=== PATIENT | male | born 1975 | race Asian ===

== ENCOUNTER 2018-10-31 20:54 | Observation (INO) | payer BC ==
--- NOTE | 2018-10-31 21:16 | PDOC ---
History of Present Illness - General Stated Complaint: SYNCOPY Time Seen by Provider: 10/31/18 20:57 History Source: Patient Exam Limitations: No Limitations - History of Present Illness Initial Comments: 10/31/18 21:16 43 yo M with significant PMHx of HTN and AVM's presents after experiencing seizure like activity while at home. He is accompanied by his you witnessed the episode. She states they were sitting down for dinner when she noticed him staring off. When she called his name he did not respond. He then began to shake his right arm and mumble strange sounds. The entire event last approx. 1 min. Then he became responsive again with no recollection of the events. No confusion he knew where he was and could identify his family but no memory events. He did not have any palpitations or loss of consciousness. He was simply sitting in a chair when this occurred. He did have seizure like activity several years ago when he was taking Buproprion to quit smoking but that is the last occurance .He denies CP, DAWSON, SOB, abdominal pain , nausea or vomiting. 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 - Suicide/Smoking/Psychosocial Hx Smoking Status: No Smoking History: Former smoker Have you smoked in the past 12 months: No If you are a former smoker, when did you quit?: 10 yrs gemma Hx Alcohol Use: No Drug/Substance Use Hx: No Lives with/in: spouse/SO Review of Systems - Review of Systems Able to Perform ROS?: Yes Is the patient limited Pashto proficient: No Constitutional: No: Diaphoresis, Fever, Loss of Appetite HEENTM: No: Recent change in vision Respiratory: No: Cough, Orthopnea, Shortness of Breath Cardiac (ROS): No: Chest Pain, Edema, Irregular Heart Rate ABD/GI: No: Abdominal Distended, Diarrhea, Poor Appetite, Poor Fluid Intake Psychiatric: No: Anxiety, Depression Endocrine: No: Flushing *Physical Exam - Physical Exam General Appearance: Yes: Appropriately Dressed. No: Apparent Distress HEENT: positive: LUIS A, Normal ENT Inspection, Normal Voice Neck: positive: Trachea midline, Supple Respiratory/Chest: positive: Chest Tender, Lungs Clear, Normal Breath Sounds. negative: Respiratory Distress, Accessory Muscle Use Cardiovascular: positive: Regular Rhythm, Regular Rate, S1, S2. negative: Edema , JVD, Murmur Vascular Pulses: Dorsalis-Pedis (R): 2+, Doralis-Pedis (L): 2+ Gastrointestinal/Abdominal: positive: Normal Bowel Sounds, Flat, Soft. negative : Organomegaly, Pulsatile Mass Musculoskeletal: negative: CVA Tenderness Extremity: positive: Normal Capillary Refill, Normal Inspection, Normal Range of Motion Neurologic: positive: blood tester II-XII NML intact, Fully Oriented, Alert, Normal Mood/ Affect, Normal Response, Motor Strength 10/25 ED Treatment Course - LABORATORY CBC & Chemistry Diagram: 10/31/18 21:43 10/31/18 21:43 Medical Decision Making - Medical Decision Making 10/31/18 22:18 43 yo M with significant PMHx of HTN and AVM's presents after experiencing seizure like activity while at home. Will obtain an EKG, CBC, and CMP to r/o cardiac or metabolic causes. Will consult Dr. Pollard for neurology and send for CTA. 10/31/18 22:35 * Labs are WNL, patient sent to CTA. * Spoke with Dr. Linn and discussed the case. He will see the patient tomorrow. Hold on AEM. If has another episode can load him at that time. * Awaiting CTA results. * Will contact Hospitalist to place patient on Observation. 10/31/18 23:51 * CTA was negative for bleed or tumor. * Patient has been accepted by Dr. Dia for observation to telemetry. *DC/Admit/Observation/Transfer Diagnosis at time of Disposition: Single unprovoked seizure - Discharge Dispostion Decision to Admit order: Yes - Referrals - Patient Instructions - Post Discharge Activity
[2018-10-31 21:48] LABS: BASO % 0.5 % (0-2.0); EOS % 0.9 % (0-4.5); HEMATOCRIT 42.9 % (35.4-49); HEMOGLOBIN 14.5 GM/dL (11.7-16.9); LYMPH % 19.4 % (8-40); MCHC 33.9 g/dl (32.0-35.9); MEAN CELL VOLUME 91.5 fl (80-96); MEAN PLT VOLUME 7.8 fl (7.5-11.1); MONO % 6.5 % (3.8-10.2); NEUT % 72.7 % (42.8-82.8); PLATELET COUNT 240 K/MM3 (134-434); RBC 4.69 M/mm3 (4.00-5.60); RDW 12.9 % (11.9-15.9); WHITE BLOOD COUNT 7.5 K/mm3 (4.0-10.0)
--- NOTE | 2018-10-31 21:49 | PDOC ---
Documentation entered by Ivet Sotelo SCRIBE, acting as scribe for Rukhsana Rojas MD. Rukhsana Rojas MD: This documentation has been prepared by the Ashleigh ross Xhesika, SCRIBE, under my direction and personally reviewed by me in its entirety. I confirm that the documentation accurately reflects all work, treatment, procedures, and medical decision making performed by me. Attending Attestation - Resident Resident Name: Sebastien Stearns - ED Attending Attestation I have performed the following: I have examined & evaluated the patient, The case was reviewed & discussed with the resident, I agree w/resident's findings & plan, Exceptions are as noted - HPI HPI: 10/31/18 21:49 The patient is a 43 year old male with a significant past medical history of HTN and AVM's who presents to our ED, via EMS after a syncopal episode around 8pm. As per , the patient was at the dinner table having dinner, went blank , could not make eye contact, started shaking right hand and making mumbling noises. As per , this episode lasted for 1 minute before self resolving, however, the patient is a poor historian because he is unaware of what happened. As per , this was unusual behavior. The patient denies headache or heart palpitations prior to his episode. The patient denies chest pain, shortness of breath or dizziness. The patient denies fever, chills, nausea, diarrhea or constipation. The patient denies dysuria, frequency, urgency or hematuria. Allergy: NKDA Surgical History: None reported Social History: None reported PCP: Dr. Nam - Physicial Exam PE: 10/31/18 21:09 GENERAL: The patient is in no acute distress. ENT: Ears normal, nares patent, oropharynx clear without exudates. Moist mucous membranes. NECK: Normal range of motion, supple LUNGS: Breath sounds equal, clear to auscultation bilaterally. No wheezes, and no crackles. HEART:Regular rate and rhythm, normal S1 and S2 without murmur, rub or gallop. ABDOMEN: Soft, nontender, normoactive bowel sounds. EXTREMITIES: Normal range of motion, no edema. NEUROLOGICAL: Cranial nerves II through XII grossly intact. Normal speech. No focal neurological deficits. SKIN: Warm, Dry, normal turgor, no rashes or lesions noted. - Medical Decision Making 10/31/18 21:42 Mr Mcfarland is a 43 yo M who presents to the ER s/p reported syncopal episode Pt was in his usual state of health until this evening at dinner At approximately 8:15 his noted that he was grunting/making strange noises , no eye contact, staring off in to space, and shaking his right arm Episode lasted approximately 1 minute and resolved Pt was not noted to be sleepy He was confused as to why his family was calling EMS BUT he knew where he was and all the people in the room No headache No neck pain Pt has a prior history of a single Generalized Tonic Clonic Seizure approximately 17 years ago (in the setting of using Wellbutrin for smoking cessation) Pt currently is back to his baseline DD: Seizure, Vasovagal syncopy, Intracranial mass, SAH, Arrhythmia Will do: Labs EKG Contact NSGY (who did coiling of AVMs) Consult neurology 10/31/18 22:47 Laboratory Tests 10/31/18 10/31/18 21:43 21:43 WBC 7.5 Hgb 14.5 Hct 42.9 Plt Count 240 BUN 17 Creatinine 1.1 Call placed to Neurology Recommends placing on observation (given history of AVMs) Awaiting CT head *DC/Admit/Observation/Transfer Diagnosis at time of Disposition: Single unprovoked seizure - Discharge Dispostion Condition at time of disposition: Stable Decision to Admit order: Yes - Referrals - Patient Instructions - Post Discharge Activity
[2018-10-31 22:35] LABS: ALBUMIN 4.1 g/dl (3.4-5.0); BILIRUBIN,TOTAL 0.3 mg/dL (0.2-1); CREATININE 1.1 mg/dL (0.55-1.3); TOT PROT 6.8 g/dl (6.4-8.2)
[2018-10-31] MEDS ORDERED: SODIUM CHLORIDE 1,000 ML IV SCH (23:30)
--- NOTE | 2018-10-31 23:34 | HP ---
CHIEF COMPLAINT:seizure episode PCP: Cyril HISTORY OF PRESENT ILLNESS: 43yo man with remote sz episode 10 yrs ago, brought in with after seizure episode at [employer] at 8pm on 10/31. Was found in chair staring off into space with right arm twitching. Lasted 2 minutes. had only one beer at [employer]. Had neck AVM sclerosed x3 - last one 1.5 years ago. Reported having multiple brain MRIs done -negative for AVMs. ER course was notable for: (1) head CT (2) IV fluids (3) Recent Travel: no PAST MEDICAL HISTORY: remote seizure episode- 10 years ago - never on AEDs, attributed to Wellbutrin that he was on at that time. Neck AVMs s/p 3 procedures - sclerotherapy? last one 1.5 years ago PAST SURGICAL HISTORY: as above Social History: Smoking: former smoker Alcohol:social Drugs: no denied Family History: denied Allergies No Known Allergies Allergy (Verified 10/31/18 21:33) HOME MEDICATIONS: Home Medications Medication Instructions Recorded Hydrochlorothiazide [Hctz -] 12.5 mg PO DAILY 10/31/18 Losartan Potassium 50 mg PO DAILY 10/31/18 REVIEW OF SYSTEMS CONSTITUTIONAL: Absent: fever, chills, diaphoresis, generalized weakness, malaise, loss of appetite, weight change HEENT: Absent: rhinorrhea, nasal congestion, throat pain, throat swelling, difficulty swallowing, mouth swelling, ear pain, eye pain, visual changes CARDIOVASCULAR: Absent: chest pain, syncope, palpitations, irregular heart rate, lightheadedness , peripheral edema RESPIRATORY: Absent: cough, shortness of breath, dyspnea with exertion, orthopnea, wheezing, stridor, hemoptysis GASTROINTESTINAL: Absent: abdominal pain, abdominal distension, nausea, vomiting, diarrhea, constipation, melena, hematochezia GENITOURINARY: Absent: dysuria, frequency, urgency, hesitancy, hematuria, flank pain, genital pain MUSCULOSKELETAL: Absent: myalgia, arthralgia, joint swelling, back pain, neck pain SKIN: Absent: rash, itching, pallor HEMATOLOGIC/IMMUNOLOGIC: Absent: easy bleeding, easy bruising, lymphadenopathy, frequent infections ENDOCRINE: Absent: unexplained weight gain, unexplained weight loss, heat intolerance, cold intolerance NEUROLOGIC: Absent: headache, focal weakness or paresthesias, dizziness, unsteady gait, mental status changes, bladder or bowel incontinence present- seizure, PSYCHIATRIC: Absent: anxiety, depression, suicidal or homicidal ideation, hallucinations. PHYSICAL EXAMINATION Vital Signs - 24 hr 10/31/18 21:00 Temperature 97.6 F Pulse Rate 77 Respiratory 18 Rate Blood Pressure 126/86 O2 Sat by Pulse 100 Oximetry (%) GENERAL: Awake, alert, and fully oriented, in no acute distress. HEAD: Normal with no signs of trauma. EYES: Pupils equal, round and reactive to light, extraocular movements intact, sclera anicteric, conjunctiva clear. No lid lag. EARS, NOSE, THROAT: Ears normal, nares patent, oropharynx clear without exudates. Moist mucous membranes. NECK: Normal range of motion, supple without lymphadenopathy, JVD, or masses. LUNGS: Breath sounds equal, clear to auscultation bilaterally. No wheezes, and no crackles. No accessory muscle use. HEART: Regular rate and rhythm, normal S1 and S2 without murmur, rub or gallop. ABDOMEN: Soft, nontender, not distended, normoactive bowel sounds, no guarding, no rebound, no masses. MUSCULOSKELETAL: Normal range of motion at all joints. No bony deformities or tenderness. No CVA tenderness. UPPER EXTREMITIES: 2+ pulses, warm, well-perfused. No cyanosis. No clubbing. No peripheral edema. LOWER EXTREMITIES: 2+ pulses, warm, well-perfused. No calf tenderness. No peripheral edema. NEUROLOGICAL: Cranial nerves II-XII intact. Normal speech. No focal weaknesses PSYCHIATRIC: Cooperative. Good eye contact. Appropriate mood and affect. SKIN: Warm, dry, normal turgor, no rashes or lesions noted, normal capillary refill. Laboratory Results - last 24 hr 10/31/18 10/31/18 21:43 21:43 WBC 7.5 RBC 4.69 Hgb 14.5 Hct 42.9 MCV 91.5 MCH 31.0 MCHC 33.9 RDW 12.9 Plt Count 240 MPV 7.8 Absolute Neuts (auto) 5.4 Neutrophils % 72.7 Lymphocytes % 19.4 Monocytes % 6.5 Eosinophils % 0.9 Basophils % 0.5 Nucleated RBC % 0 Sodium 138 Potassium 4.0 Chloride 104 Carbon Dioxide 28 Anion Gap 7 L BUN 17 Creatinine 1.1 Est GFR (CKD-EPI)AfAm 94.79 Est GFR (CKD-EPI)NonAf 81.78 Random Glucose 110 H Calcium 8.0 L Total Bilirubin 0.3 AST 22 ALT 31 Alkaline Phosphatase 90 Total Protein 6.[address], ekg reviewed ASSESSMENT/PLAN: #Seizure episode - unprovoked, second episode. -tele-observation -npo -IV fluid hydration -bed rest -No AEDs for now as per neuro recs -neuro consult -neuro checks q4hr -bed rest -monitor electrolytes, replace prn -SCDs -for dvt ppx Visit type - Emergency Visit Emergency Visit: Yes ED Registration Date: 10/31/18 Care time: The patient presented to the Emergency Department on the above date and was hospitalized for further evaluation of their emergent condition. - New Patient This patient is new to me today: Yes Date on this admission: 11/01/18 - Critical Care Critical Care patient: No
[2018-11-01 03:36] VITALS: BMI 24.7
[2018-11-01 07:31] LABS: HEMATOCRIT 39.7 % (35.4-49); HEMOGLOBIN 13.5 GM/dL (11.7-16.9); MCH 30.9 pg (25.7-33.7); MCHC 33.9 g/dl (32.0-35.9); MEAN CELL VOLUME 91.2 fl (80-96); MEAN PLT VOLUME 8.3 fl (7.5-11.1); PLATELET COUNT 215 K/MM3 (134-434); RBC 4.36 M/mm3 (4.00-5.60); RDW 13.5 % (11.9-15.9); WHITE BLOOD COUNT 6.6 K/mm3 (4.0-10.0)
[2018-11-01 07:40] LABS: CALCIUM 8.1 mg/dL (8.5-10.1); CREATININE 0.9 mg/dL (0.55-1.3); MAGNESIUM 2.1 mg/dL (1.8-2.4); PHOSPHOROUS 2.6 mg/dL (2.5-4.9); POTASSIUM 3.7 mmol/L (3.5-5.1)
--- NOTE | 2018-11-01 09:35 | EKG ---
Test Reason : Blood Pressure : / mmHG Vent. Rate : 073 BPM Atrial Rate : 073 BPM P-R Int : 170 ms QRS Dur : 090 ms QT Int : 370 ms P-R-T Axes : 046 040 015 degrees QTc Int : 407 ms NORMAL SINUS RHYTHM NORMAL ECG NO PREVIOUS ECGS AVAILABLE Confirmed by MARIFER BARBA MD ([id number]) on 11/01/2018 9:35:13 AM Referred By: Confirmed By:MARIFER BARBA MD
[2018-11-01] MEDS ORDERED: LOSARTAN POTASSIUM 50 MG TABLET (FP) PO SCH (10:00)
[2018-11-01] MEDS ORDERED: HYDROCHLOROTHIAZIDE 12.5 MG CAPSULE (FP) PO SCH (10:00)
[2018-11-01 10:26] VITALS: BP 124/79; PULSE 62; TEMP 98.1
--- NOTE | 2018-11-01 10:39 | PN ---
Progress Note, Physician Chief Complaint: New onset of seizure History of Present Illness: NAD Self ambulatory Hx of AVM Sees Dr Reji Reyes MD (Diagnostic radiologist) Mabel means Has had 3 procedures int he past, Had last embolization late 2016 CT head negative Was having a beer at a get together, talking to his friend, started spacing out , sat down, stared for 30 secs with right arm twitching, then returned to his baseline as per his . - Current Medication List Current Medications: Active Medications Hydrochlorothiazide (Hctz -) 12.5 mg PO DAILY KIEL Losartan Potassium (Cozaar -) 50 mg PO DAILY KEIL - Objective Vital Signs: Vital Signs Temperature 98.1 F 11/01/18 09:00 Pulse Rate 62 11/01/18 09:00 Respiratory Rate 20 11/01/18 09:00 Blood Pressure 124/79 11/01/18 09:00 O2 Sat by Pulse Oximetry (%) 98 11/01/18 07:30 Constitutional: Yes: Well Nourished, No Distress, Calm Cardiovascular: Yes: Regular Rate and Rhythm Respiratory: Yes: Regular, CTA Bilaterally Gastrointestinal: Yes: Normal Bowel Sounds, Soft Genitourinary: Yes: WNL Musculoskeletal: Yes: WNL Extremities: Yes: WNL Neurological: Yes: Alert, Oriented ...Motor Strength: WNL Psychiatric: Yes: Alert, Oriented Labs: CBC, BMP 11/01/18 06:23 11/01/18 06:23 Problem List - Problems (1) Single unprovoked seizure Assessment/Plan: -CT head negative -Neurology consult -Workup outpatient if needed, if cleared by Neurology Code(s): R56.9 - UNSPECIFIED CONVULSIONS Assessment/Plan see problem list
--- NOTE | 2018-11-01 10:53 | CONSULT ---
Consult - text type - Consultation Consultation Note: Neurology CHIEF COMPLAINT:seizure episode PCP: Cyril History of Present Illness: 43 yo M with significant PMHx of HTN and AVM's presents after experiencing seizure like activity while at home on day of admission. He is accompanied by his who reportedly witnessed the episode. Per notes, she stated they were sitting down for dinner when she noticed him staring off. When she called his name he did not respond. He then began to shake his right arm and mumble strange sounds. The entire event last approx. 1 min. Then he became responsive again with no recollection of the events. No confusion he knew where he was and could identify his family but no memory events. He did not have any palpitations or loss of consciousness. He was simply sitting in a chair when this occurred. He did have seizure like activity several years ago when he was taking Buproprion to quit smoking but that is the last occurrence. He denies CP , DAWSON, SOB, abdominal pain , nausea or vomiting. Had neck AVM sclerosed x3 - last one 1.5 years ago. Reported having multiple brain MRIs done previously - negative for AVMs. Head CT completed on admission - no acute pathology. Discussed with patient only work up left is EEG which is not done here on the weekend. Will expedite office appt for him for tomorrow and will have study completed LATA. He was in agreement. Reports being at baseline and no seizure like events overnight. Recent Travel: no PAST MEDICAL HISTORY: remote seizure episode- 10 years ago - never on AEDs, attributed to Wellbutrin that he was on at that time. Neck AVMs s/p 3 procedures - sclerotherapy? last one 1.5 years ago PAST SURGICAL HISTORY: as above Social History: Smoking: former smoker Alcohol:social Drugs: no denied Family History: denied Allergies No Known Allergies Allergy (Verified 10/31/18 21:33) HOME MEDICATIONS: Home Medications Medication Instructions Recorded Hydrochlorothiazide [Hctz -] 12.5 mg PO DAILY 10/31/18 Losartan Potassium 50 mg PO DAILY 10/31/18 REVIEW OF SYSTEMS CONSTITUTIONAL: Absent: fever, chills, diaphoresis, generalized weakness, malaise, loss of appetite, weight change HEENT: Absent: rhinorrhea, nasal congestion, throat pain, throat swelling, difficulty swallowing, mouth swelling, ear pain, eye pain, visual changes CARDIOVASCULAR: Absent: chest pain, syncope, palpitations, irregular heart rate, lightheadedness , peripheral edema RESPIRATORY: Absent: cough, shortness of breath, dyspnea with exertion, orthopnea, wheezing, stridor, hemoptysis GASTROINTESTINAL: Absent: abdominal pain, abdominal distension, nausea, vomiting, diarrhea, constipation, melena, hematochezia GENITOURINARY: Absent: dysuria, frequency, urgency, hesitancy, hematuria, flank pain, genital pain MUSCULOSKELETAL: Absent: myalgia, arthralgia, joint swelling, back pain, neck pain SKIN: Absent: rash, itching, pallor HEMATOLOGIC/IMMUNOLOGIC: Absent: easy bleeding, easy bruising, lymphadenopathy, frequent infections ENDOCRINE: Absent: unexplained weight gain, unexplained weight loss, heat intolerance, cold intolerance NEUROLOGIC: Absent: headache, focal weakness or paresthesias, dizziness, unsteady gait, mental status changes, bladder or bowel incontinence present- seizure, PSYCHIATRIC: Absent: anxiety, depression, suicidal or homicidal ideation, hallucinations. PHYSICAL EXAMINATION Vital Signs Temperature 98.1 F 11/01/18 09:00 Pulse Rate 62 11/01/18 09:00 Respiratory Rate 20 11/01/18 09:00 Blood Pressure 124/79 11/01/18 09:00 O2 Sat by Pulse Oximetry (%) 98 11/01/18 07:30 GENERAL: Awake, alert, and fully oriented, in no acute distress. HEAD: Normal with no signs of trauma. EYES: Pupils equal, round and reactive to light, extraocular movements intact, sclera anicteric, conjunctiva clear. No lid lag. EARS, NOSE, THROAT: Ears normal, nares patent, oropharynx clear without exudates. Moist mucous membranes. NECK: Normal range of motion, supple without lymphadenopathy, JVD, or masses. LUNGS: Breath sounds equal, clear to auscultation bilaterally. No wheezes, and no crackles. No accessory muscle use. HEART: Regular rate and rhythm, normal S1 and S2 without murmur, rub or gallop. ABDOMEN: Soft, nontender, not distended, normoactive bowel sounds, no guarding, no rebound, no masses. MUSCULOSKELETAL: Normal range of motion at all joints. No bony deformities or tenderness. No CVA tenderness. UPPER EXTREMITIES: 2+ pulses, warm, well-perfused. No cyanosis. No clubbing. No peripheral edema. LOWER EXTREMITIES: 2+ pulses, warm, well-perfused. No calf tenderness. No peripheral edema. NEUROLOGICAL: Cranial nerves II-XII intact. Normal speech. No focal weaknesses , no slurred speech. normal strength PSYCHIATRIC: Cooperative. Good eye contact. Appropriate mood and affect. SKIN: Warm, dry, normal turgor, no rashes or lesions noted, normal capillary refill. CBCD WBC 6.6 K/mm3 (4.0-10.0) 11/01/18 06:23 RBC 4.36 M/mm3 (4.00-5.60) 11/01/18 06:23 Hgb 13.5 GM/dL (11.7-16.9) 11/01/18 06:23 Hct 39.7 % (35.4-49) 11/01/18 06:23 MCV 91.2 fl (80-96) 11/01/18 06:23 MCHC 33.9 g/dl (32.0-35.9) 11/01/18 06:23 RDW 13.5 % (11.9-15.9) 11/01/18 06:23 Plt Count 215 K/MM3 (134-434) 11/01/18 06:23 MPV 8.3 fl (7.5-11.1) 11/01/18 06:23 CMP Sodium 142 mmol/L (136-145) 11/01/18 06:23 Potassium 3.7 mmol/L (3.5-5.1) 11/01/18 06:23 Chloride 107 mmol/L (98-107) 11/01/18 06:23 Carbon Dioxide 29 mmol/L (21-32) 11/01/18 06:23 Anion Gap 6 MMOL/L (8-16) L 11/01/18 06:23 BUN 13 mg/dL (7-18) 11/01/18 06:23 Creatinine 0.9 mg/dL (0.55-1.3) 11/01/18 06:23 Random Glucose 100 mg/dL (74-106) 11/01/18 06:23 Calcium 8.1 mg/dL (8.5-10.1) L 11/01/18 06:23 Total Bilirubin 0.3 mg/dL (0.2-1) 10/31/18 21:43 AST 22 U/L (15-37) 10/31/18 21:43 ALT 31 U/L (13-61) 10/31/18 21:43 Alkaline Phosphatase 90 U/L (45-117) 10/31/18 21:43 Total Protein 6.8 g/dl (6.4-8.2) 10/31/18 21:43 Albumin 4.1 g/dl (3.4-5.0) 10/31/18 21:43 Diagnostics: Head CT - completed, no acute pathology CXRAY - completed; awaiting results ASSESSMENT/PLAN: 43 yo M with significant PMHx of HTN and AVM's presents after experiencing seizure like activity while at home on day of admission. He is accompanied by his you witnessed the episode. She states they were sitting down for dinner when she noticed him staring off. When she called his name he did not respond. He then began to shake his right arm and mumble strange sounds. The entire event last approx. 1 min. Then he became responsive again with no recollection of the events. No confusion he knew where he was and could identify his family but no memory events. He did not have any palpitations or loss of consciousness. He was simply sitting in a chair when this occurred. He did have seizure like activity several years ago when he was taking Buproprion to quit smoking but that is the last occurrence. He denies CP, DAWSON, SOB, abdominal pain , nausea or vomiting. Had neck AVM sclerosed x3 - last one 1.5 years ago. Reported having multiple brain MRIs done -negative for AVMs. Head CT completed - no acute pathology, Cxray completed - awaiting results. Discussed with patient only work up left is EEG which is not done here on the weekend. Will expedite office appt for him for tomorrow and will have study completed LATA. He was in agreement. Reports being at baseline and no seizure like events overnight. Will not require AED at this time for one time event. If recurrence then would consider medication. Does not require workup for AVM at this time. Neurologically stable.
== END 2018-11-01 13:49 | disposition home or self-care (01) ==
LOC: JER 20:54 → SUPCPDRO 20:54 → INTOOBSV 23:09 → JERBED 23:09 → J4W 11-01 02:27
PROVIDERS: ADMIT Family Medicine; ATTEND Family Medicine
PROC: 3E0337Z Introduction of Electrolytic and Water Balance Substance into Peripheral Vein, Percutaneous Approach (ICD-10-PCS; principal; 2018-10-31)
DX: R56.9 Unspecified convulsions (principal); I10 Essential (primary) hypertension; Z87.891 Personal history of nicotine dependence; Z87.798 Personal history of other (corrected) congenital malformations
CPT/HCPCS: 36415; 70450-TC; 71045-TC-FY; 80048; 80053; 82962; 83735; 84100; 85025; 85027; 93005; 93010; 99283-25; G0378; J7030